=== PATIENT | male | born 1960 | race Two or more races ===

== ENCOUNTER 2017-08-31 09:35 | Inpatient (IN) | payer OTHER ==
[2017-08-31 10:10] VITALS: BMI 29.2
--- NOTE | 2017-08-31 10:58 | HP ---
CIWA Score - CIWA Score Nausea/Vomitin Muscle Tremors: 3 Anxiety: 3 Agitation: 4-Moderately Restless Paroxysmal Sweats: 3 Orientation: 0-Oriented Tacttile Disturbances: 0-None Auditory Disturbances: 0-None Visual Disturbances: 0-None Headache: 0-None Present CIWA-Ar Total Score: 16 Admission ROS S - HPI Chief Complaint: "I am here to detox from drugs and alcohol" Allergies/Adverse Reactions: Allergies Allergy/AdvReac Type Severity Reaction Status Date / Time No Known Allergies Allergy Verified 08/31/17 10:30 History of Present Illness: 57 y/o man with a long history of alcohol and marijuana addiction presents here today for detox from alcohol. States he was clean for 23 years but started drinking again last year, this time more than before. This is the first time pt will be in detox since his relapse. Hx of Bp, repair of R meniscus. Pt states abuses adderall, lorazepam and flurazapam prescribed by his psychiatrist for unknown dx. denies current SI/HI Exam Limitations: No Limitations - Ebola screening Have you traveled outside of the country in the last 21 days: No (N) Have you had contact with anyone from an Ebola affected area: No Have you been sick,other than usual withdrawal symptoms: No Do you have a fever: No - Review of Systems Constitutional: No Symptoms Reported EENT: reports: Nose Congestion Respiratory: reports: Shortness of Breath (on ambulation) Cardiac: reports: No Symptoms Reported GI: reports: Other (loose stools always after eating) : reports: No Symptoms Reported Musculoskeletal: reports: Joint Pain (L knee) Integumentary: reports: No Symptoms Reported Neuro: reports: Tingling (at fingertips) Endocrine: reports: Excessive Sweating Hematology: reports: No Symptoms Reported Psychiatric: reports: No Sypmtoms Reported, Judgement Intact, Orientated x3, Agitated Other Systems: Reviewed and Negative Patient History - Patient Medical History Hx Anemia: No Hx Asthma: No Hx Chronic Obstructive Pulmonary Disease (COPD): No Hx Cancer: No Hx Cardiac Disorders: No Hx Congestive Heart Failure: No Hx Hypertension: Yes (Amlodipine 5mg) Hx Hypercholesterolemia: No Hx Pacemaker: No HX Cerebrovascular Accident: No Hx Seizures: No Hx Diabetes: No Hx Gastrointestinal Disorders: No Hx Liver Disease: No Hx Genitourinary Disorders: No Hx Sexually Transmitted Disorders: No Hx Renal Disease (ESRD): No Hx Thyroid Disease: No Hx Human Immunodeficiency Virus (HIV): No Hx Hepatitis C: No Hx Depression: Yes Hx Suicide Attempt: No Hx Bipolar Disorder: No Hx Schizophrenia: No - Patient Surgical History Past Surgical History: Yes Hx Neurologic Surgery: No Hx Cataract Extraction: No Hx Cardiac Surgery: No Hx Lung Surgery: No Hx Breast Surgery: No Hx Breast Biopsy: No Hx Abdominal Surgery: No Hx Appendectomy: No Hx Cholecystectomy: No Hx Genitourinary Surgery: No Hx Section: No Hx Orthopedic Surgery: Yes (RT KNEE meniscus repair- 2006) Hx Hysterectomy: No Other Surgical History: EYE SX- 15 YRS AGO Anesthesia Reaction: No - PPD History Previous Implant?: Yes Documented Results: Negative w/o proof Implanted On Prior [facility] Admission?: No PPD to be Administered?: Yes - Reproductive History Patient is a Female of Child Bearing Age (11 -55 yrs old): No - Smoking Cessation Smoking history: Former smoker Have you smoked in the past 12 months: No Aproximately how many cigarettes per day: 0 If you are a former smoker, when did you quit?: 23 YEARS Hx Chewing Tobacco Use: No Initiated information on smoking cessation: Yes 'Breaking Loose' booklet given: 08/31/17 - Substance & Tx. History Hx Alcohol Use: Yes Hx Substance Use: Yes Substance Use Type: Alcohol, Tranquilizers - Substances Abused Alcohol Route: Oral Frequency: Daily Amount used: LIQUOR - Vodka - 4 PINTS Age of first use: 8 Date of Last Use: 08/30/17 Marijuana/Hashish Route: Smoking Frequency: Daily Amount used: 4 BLUNTS Age of first use: 9 Date of Last Use: 08/30/17 Benzodiazepine (Klonopin) Route: Oral Frequency: Daily Amount used: 30mg flurazapam, 1mg lorazepam 2x daily Age of first use: 47 Date of Last Use: 08/30/17 Family Disease History - Family Disease History Family Disease History: Other: Grandparent ( of liver cirrhosis), Father ( of liver cirrhosis), Mother (alzheimer, dementia), Brother (Alcoholic, IVDA ), Son (Alcoholic) Admission Physical Exam [facility] - Vital Signs Vital Signs: Vital Signs - 24 hr 08/31/17 10:08 Temperature 97.0 F L Pulse Rate 113 H Respiratory 22 Rate Blood Pressure 155/109 - Physical General Appearance: Yes: Mild Distress, Moderate Distress HEENTM: Yes: Within Normal Limits Respiratory: Yes: Chest Non-Tender, Lungs Clear Neck: Yes: Within Normal Limits Breast: Yes: Breast Exam Deferred Cardiology: Yes: Within Normal Limits, Tachycardia Abdominal: Yes: Non Tender, Distended Back: Yes: Within Normal Limits Musculoskeletal: Yes: Joint Stiffness (legs) Extremities: Yes: Within Normal Limits Neurological: Yes: Within Normal Limits, Fully Oriented, Alert, Normal Response Integumentary: Yes: Within Normal Limits Lymphatic: Yes: Within Normal Limits - Diagnostic (1) Alcohol dependence with uncomplicated withdrawal Current Visit: Yes Status: Acute (2) Marijuana dependence Current Visit: Yes Status: Chronic (3) Sedative hypnotic or anxiolytic dependence Current Visit: Yes Status: Chronic (4) HTN (hypertension) Current Visit: Yes Status: Chronic Cleared for Admission [facility] - Detox or Rehab [facility] Level of Care: Medically Managed Detox Regimen/Protocol: Librium S Breath Alcohol Content Breath Alcohol Content: 0 Urine Drug Screen - Results Drug Screen Negative: No Urine Drug Screen Results: THC-Marijuana, BZO-Benzodiazepines
[2017-08-31] MEDS ORDERED: P-EPHED 60MG/TRIPROLIDI 2.5MG TABLET PO PRN (11:41)
[2017-08-31] MEDS ORDERED: ACETAMINOPHEN 325 MG TABLET (FP) PO PRN (11:41)
[2017-08-31] MEDS ORDERED: MAGNESIUM HYDROX 2400MG/30ML ORAL SUSPENSION 30 ML CUP PO PRN (11:41)
[2017-08-31] MEDS ORDERED: LOPERAMIDE HCL 2 MG CAPSULE PO PRN (11:41)
[2017-08-31] MEDS ORDERED: MAGNESIUM CITRATE 300 ML BOTTLE PO PRN (11:41)
[2017-08-31] MEDS ORDERED: MAG HYDROX/AL HYDROX/SIMETH 30 ML UNIT-DOSE CUP PO PRN (11:41)
[2017-08-31] MEDS ORDERED: IBUPROFEN 400 MG TABLET (FP) PO PRN (11:41)
[2017-08-31] MEDS ORDERED: MENTHOL/PHENOL 1 EACH UD MM PRN (11:41)
[2017-08-31] MEDS ORDERED: guaiFENesin/D-METHORPHAN HB 10 ML UNIT-DOSE CUPS PO PRN (11:41)
--- NOTE | 2017-08-31 11:54 | PN ---
S Progress Note Note: Pt's Bp is elevated at this time, states he was given BP med earlier at the hospital today. Denies headache, chest pain/discomfort, blurry vision. Will repeat BP and treat as needed
[2017-08-31] MEDS: chlordiazePOXIDE HCL 25 MG CAPSULE PO SCH ×3 (12:35→22:26)
[2017-08-31] MEDS: METOPROLOL TARTRATE 50 MG TABLET (FP) PO SCH ×2 (12:36→22:26)
[2017-08-31 17:10] LABS: URINE APPEARANCE CLEAR; URINE BILIRUBIN NEGATIVE (<2.0 mg/dL); URINE BLOOD NEGATIVE (NEGATIVE); URINE COLOR YELLOW; URINE GLUCOSE (UA) NEGATIVE (NEGATIVE); URINE KETONE NEGATIVE (NEGATIVE); URINE LEUK ESTERASE NEGATIVE (NEGATIVE); URINE NITRITE NEGATIVE (NEGATIVE); URINE PROTEIN NEGATIVE (NEGATIVE)
[2017-08-31] MEDS: MELATONIN 5 MG TABLETS PO SCH (22:26)
[2017-08-31] MEDS: THIAMINE HCL 100 MG TABLET (FP) PO SCH (22:26)
[2017-09-01] MEDS: hydrOXYzine PAMOATE 50 MG CAPSULE (FP) PO PRN (01:37)
[2017-09-01] MEDS: chlordiazePOXIDE HCL 25 MG CAPSULE PO SCH ×4 (05:24→22:28)
--- NOTE | 2017-09-01 09:09 | EKG ---
Test Reason : Blood Pressure : / mmHG Vent. Rate : 107 BPM Atrial Rate : 107 BPM P-R Int : 146 ms QRS Dur : 088 ms QT Int : 338 ms P-R-T Axes : 083 026 048 degrees QTc Int : 451 ms SINUS TACHYCARDIA NORMAL ECG NO PREVIOUS ECGS AVAILABLE Confirmed by WENDY NICHOLS MD ([id number]) on 09/01/2017 9:08:40 AM Referred By: Confirmed By:WENDY NICHOLS MD
[2017-09-01] MEDS: METOPROLOL TARTRATE 50 MG TABLET (FP) PO SCH ×2 (10:08→22:28)
[2017-09-01] MEDS: PRENATAL VITAMINS W/ FOLIC ACID TABLET (FP) PO SCH (10:08)
[2017-09-01 10:09] LABS: HEMATOCRIT 39.9 % (35.4-49); MCHC 32.7 g/dl (32.0-35.9); MEAN CELL VOLUME 76.6 fl (80-96); MEAN PLT VOLUME 8.9 fl (7.5-11.1); PLATELET COUNT 271 K/MM3 (134-434); RBC 5.21 M/mm3 (4.00-5.60); RDW 17.4 % (11.9-15.9); WHITE BLOOD COUNT 6.9 K/mm3 (4.0-10.0)
[2017-09-01] MEDS: amLODIPine BESYLATE 5 MG TABLET (FP) PO SCH (10:10)
--- NOTE | 2017-09-01 10:27 | CONSULT ---
[facility] Psychiatric Consult - Data Date of interview: 09/01/17 Admission source: [facility] Identifying data: This is 57 years old AA male , , but , fatyhjer of two, living with roomate, selfemployed, on PA, eith no psychiatric hospitalizations history,. Pt states abuses adderall, lorazepam and flurazapam prescribed by his psychiatrist for unknown dx. Substance Abuse History: Smoking history: Former smoker. Have you smoked in the past 12 months: No. Aproximately how many cigarettes per day: 0. If you are a former smoker, when did you quit?: 23 YEARS. Hx Chewing Tobacco Use: No. Initiated information on smoking cessation: Yes. 'Breaking Loose' booklet given: 08/31/17. - Substance & Tx. History. Hx Alcohol Use: Yes. Hx Substance Use: Yes. Substance Use Type: Alcohol, Tranquilizers. - Substances Abused. Alcohol. Route: Oral. Frequency: Daily. Amount used: LIQUOR - Vodka - 4 PINTS. Age of first use: 8. Date of Last Use: 08/30/17. Marijuana/Hashish. Route: Smoking. Frequency: Daily. Amount used: 4 BLUNTS. Age of first use: 9. Date of Last Use: 08/30/17. Benzodiazepine (Klonopin) . Route: Oral. Frequency: Daily. Amount used: 30mg flurazapam, 1mg lorazepam 2x daily. Age of first use: 47. Date of Last Use: 08/30/17 Medical History: HTN Psychiatric History: Patien onel insomnia, anxiety, asking for sleeeping medications, Physical/Sexual Abuse/Trauma History: Denies, reports history of S/P surgery mark replace left meniscus. Additional Comment: Seroquel 150mg pop qhs. Observation Mental Status Exam - Mental Status Exam Alert and Oriented to: Place, Person Cognitive Function: Fair Patient Appearance: Well Groomed Mood: Apprehensive Affect: Mood Congruent Patient Behavior: Cooperative Speech Pattern: Appropriate Voice Loudness: Normal Thought Process: Goal Oriented Thought Disorder: Being Controlled Hallucinations: Denies Suicidal Ideation: Denies Homicidal Ideation: Denies Insight/Judgement: Fair Sleep: Difficulty falling asleep Appetite: Weight gain Muscle strength/Tone: Mild Hypotonicity Gait/Station: Shuffling Additional Comments: Seroquel 150mg pop qhs. Observation Psychiatric Findings - Problem List ([facility] 1, 2,3) (1) Drug-induced mood disorder Current Visit: Yes Status: Acute (2) Alcohol dependence with uncomplicated withdrawal Current Visit: Yes Status: Acute (3) Marijuana dependence Current Visit: Yes Status: Chronic (4) Sedative hypnotic or anxiolytic dependence Current Visit: Yes Status: Chronic - Initial Treatment Plan Initial Treatment Plan: Seroquel 150mg pop qhs. Observation
[2017-09-01 10:34] LABS: ALBUMIN 3.9 g/dl (3.4-5.0); ANION GAP 11 (8-16); BLOOD UREA NITROGEN 16 mg/dL (7-18); CALCIUM 9.1 mg/dL (8.5-10.1); CHLORIDE 102 mmol/L (98-107); CO2 27 mmol/L (21-32); GLUCOSE,RANDOM 116 mg/dL (74-106); POTASSIUM 3.9 mmol/L (3.5-5.1); SGOT/AST 40 U/L (15-37); SGPT/ALT 45 U/L (12-78); SODIUM 140 mmol/L (136-145)
[2017-09-01 10:36] LABS: ALK PHOS 89 U/L (45-117); BILIRUBIN,TOTAL 0.9 mg/dL (0.2-1.0); TOT PROT 7.6 g/dl (6.4-8.2)
--- NOTE | 2017-09-01 11:32 | PN ---
S CIWA - CIWA Score Nausea/Vomitin Muscle Tremors: 3 Anxiety: 3 Agitation: 3 Paroxysmal Sweats: 2 Orientation: 0-Oriented Tacttile Disturbances: 1-Very Mild Itch/Numbness Auditory Disturbances: 1-Very Mild Visual Disturbances: 0-None Headache: 2-Mild CIWA-Ar Total Score: 18 S Progress Note (SOAP) Subjective: ALERT,IRRITABLE,ANXIOUS,INTERRUPTED SLEEP,TREMOR Objective: 09/01/17 11:30 Vital Signs Temperature 97.9 F 09/01/17 09:48 Pulse Rate 90 09/01/17 09:48 Respiratory Rate 20 09/01/17 09:48 Blood Pressure 136/78 09/01/17 09:48 O2 Sat by Pulse Oximetry (%) EKG SINUS TACHYCARDIA 107/MIN 09/01/17 11:31 Laboratory Last Values WBC 6.9 K/mm3 (4.0-10.0) 09/01/17 07:00 RBC 5.21 M/mm3 (4.00-5.60) 09/01/17 07:00 Hgb 13.0 GM/dL (11.7-16.9) 09/01/17 07:00 Hct 39.9 % (35.4-49) 09/01/17 07:00 MCV 76.6 fl (80-96) L 09/01/17 07:00 MCH 25.0 pg (25.7-33.7) L 09/01/17 07:00 MCHC 32.7 g/dl (32.0-35.9) 09/01/17 07:00 RDW 17.4 % (11.9-15.9) H 09/01/17 07:00 Plt Count 271 K/MM3 (134-434) 09/01/17 07:00 MPV 8.9 fl (7.5-11.1) 09/01/17 07:00 Sodium 140 mmol/L (136-145) 09/01/17 07:00 Potassium 3.9 mmol/L (3.5-5.1) 09/01/17 07:00 Chloride 102 mmol/L (98-107) 09/01/17 07:00 Carbon Dioxide 27 mmol/L (21-32) 09/01/17 07:00 Anion Gap 11 (8-16) 09/01/17 07:00 BUN 16 mg/dL (7-18) 09/01/17 07:00 Creatinine 1.0 mg/dL (0.7-1.3) 09/01/17 07:00 Creat Clearance w eGFR > 60 (>60) 09/01/17 07:00 Random Glucose 116 mg/dL (74-106) H 09/01/17 07:00 Calcium 9.1 mg/dL (8.5-10.1) 09/01/17 07:00 Total Bilirubin 0.9 mg/dL (0.2-1.0) 09/01/17 07:00 AST 40 U/L (15-37) H 09/01/17 07:00 ALT 45 U/L (12-78) 09/01/17 07:00 Alkaline Phosphatase 89 U/L (45-117) 09/01/17 07:00 Total Protein 7.6 g/dl (6.4-8.2) 09/01/17 07:00 Albumin 3.9 g/dl (3.4-5.0) 09/01/17 07:00 Urine Color Yellow 08/31/17 11:50 Urine Appearance Clear 08/31/17 11:50 Urine pH 6.0 (5.0-8.0) 08/31/17 11:50 Ur Specific [place] 1.016 (1.001-1.035) 08/31/17 11:50 Urine Protein Negative (NEGATIVE) 08/31/17 11:50 Urine Glucose (UA) Negative (NEGATIVE) 08/31/17 11:50 Urine Ketones Negative (NEGATIVE) 08/31/17 11:50 Urine Blood Negative (NEGATIVE) 08/31/17 11:50 Urine Nitrite Negative (NEGATIVE) 08/31/17 11:50 Urine Bilirubin Negative (<2.0 mg/dL) 08/31/17 11:50 Urine Urobilinogen 2.0 mg/dL (0.2-1.0) 08/31/17 11:50 Ur Leukocyte Esterase Negative (NEGATIVE) 08/31/17 11:50 Assessment: 09/01/17 11:31 WITHDRAWAL SYMPTOM Plan: CONTINUE DETOX,FASTING GLUCOSE IN AM INITIAL GLUCOSE IS 116
[2017-09-01] MEDS ORDERED: QUEtiapine FUMARATE 100 MG TABLET (FP) PO SCH (22:00)
[2017-09-01] MEDS: THIAMINE HCL 100 MG TABLET (FP) PO SCH (22:28)
[2017-09-01] MEDS: MELATONIN 5 MG TABLETS PO SCH (22:29)
[2017-09-02] MEDS: hydrOXYzine PAMOATE 50 MG CAPSULE (FP) PO PRN (01:48)
[2017-09-02] MEDS: chlordiazePOXIDE HCL 25 MG CAPSULE PO PRN (02:28)
[2017-09-02] MEDS: chlordiazePOXIDE HCL 25 MG CAPSULE PO SCH (05:22)
[2017-09-02] MEDS: chlordiazePOXIDE 5 MG CAPSULE PO SCH ×3 (10:45→22:20)
[2017-09-02] MEDS: amLODIPine BESYLATE 5 MG TABLET (FP) PO SCH (10:45)
[2017-09-02] MEDS: METOPROLOL TARTRATE 50 MG TABLET (FP) PO SCH ×2 (10:45→22:20)
[2017-09-02] MEDS: PRENATAL VITAMINS W/ FOLIC ACID TABLET (FP) PO SCH (10:45)
--- NOTE | 2017-09-02 11:39 | PN ---
S CIWA - CIWA Score Nausea/Vomitin Muscle Tremors: 3 Anxiety: 3 Agitation: 3 Paroxysmal Sweats: 1-Minimal Palms Moist Orientation: 0-Oriented Tacttile Disturbances: 1-Very Mild Itch/Numbness Auditory Disturbances: 1-Very Mild Visual Disturbances: 0-None Headache: 2-Mild CIWA-Ar Total Score: 17 BHS Progress Note (SOAP) Subjective: ALERT,IRRITABLE,ANXIOUS,INTERRUPTED SLEEP,TREMOR,PAIN IN THE BODY Objective: 09/02/17 11:38 Vital Signs Temperature 97.7 F 09/02/17 06:19 Pulse Rate 88 09/02/17 06:19 Respiratory Rate 18 09/02/17 06:19 Blood Pressure 136/93 09/02/17 06:19 O2 Sat by Pulse Oximetry (%) Laboratory Results - last 24 hr 09/01/17 09/02/17 07:00 07:00 Fasting Glucose 90 RPR Titer Nonreactive Assessment: 09/02/17 11:38 WITHDRAWAL SYMPTOM Plan: CONTINUE DETOX
[2017-09-02] MEDS ORDERED: QUEtiapine FUMARATE 100 MG TABLET (FP) PO SCH (17:26)
--- NOTE | 2017-09-02 17:26 | PN ---
[facility] Progress Note Note: Psychiatric nurse practitioner note: RN reports patient was upset after seroquel 100mg qhs was ordered. As per patient, psychiatrist stated he would order seroquel 150mg qhs. Chart reviewed. Dr. Coreas's note read and appreciated. Will order seroquel 150mg qhs.
[2017-09-02] MEDS ORDERED: QUEtiapine FUMARATE 50 MG TABLET PO SCH (22:00)
[2017-09-02] MEDS: THIAMINE HCL 100 MG TABLET (FP) PO SCH (22:20)
[2017-09-02] MEDS: MELATONIN 5 MG TABLETS PO SCH (22:20)
[2017-09-03] MEDS: chlordiazePOXIDE HCL 25 MG CAPSULE PO PRN (03:26)
[2017-09-03] MEDS: chlordiazePOXIDE 5 MG CAPSULE PO SCH (05:59)
--- NOTE | 2017-09-03 08:18 | PN ---
Psychiatric Progress Note Vital Signs: Vital Signs Period Temp Pulse Resp BP Sys/[place] Pulse Ox Last 24 Hr 96.1 F-98.1 F 85-95 18-20 135-151/81-95 Date of Session: 09/03/17 Chief Complaint:: Seroquel order HPI: Patient aproached in a lobby asking to increase his Seroquel to 200mg po qhs due to insomnia Current Medications: Active Medications Generic Name Dose Route Start Last Admin Trade Name Freq PRN Reason Stop Dose Admin Acetaminophen 650 mg 08/31/17 11:41 Tylenol - PO Q4H PRN FEVER Al Hydroxide/Mg Hydroxide 30 ml 08/31/17 11:41 Mylanta Oral Suspension - PO Q6H PRN DYSPEPSIA Amlodipine Besylate 5 mg 09/01/17 10:00 09/02/17 10:45 Norvasc - PO 5 mg DAILY INGRID Administration Chlordiazepoxide HCl 25 mg 08/31/17 11:41 09/03/17 03:26 Librium - PO 09/03/17 11:40 25 mg Q4H PRN Administration WITHDRAWAL(CONT SUBST) Chlordiazepoxide HCl 10 mg 09/03/17 11:00 Librium - PO 09/04/17 05:01 [id number] INGRID Eucalyptus/Menthol/Phenol/Sorbitol 1 each 08/31/17 11:41 Cepastat Lozenge - MM Q4H PRN SORE THROAT Guaifenesin 10 ml 08/31/17 11:41 Robitussin Dm - PO Q6H PRN COUGH Hydroxyzine Pamoate 50 mg 08/31/17 11:41 09/02/17 01:48 Vistaril - PO 50 mg Q4H PRN Administration AGITATION Ibuprofen 400 mg 08/31/17 11:41 Motrin - PO Q6H PRN PAIN LEVEL 4-6 Loperamide HCl 4 mg 08/31/17 11:41 Imodium - PO Q6H PRN DIARRHEA Magnesium Citrate 300 ml 08/31/17 11:41 Citroma - PO Q48H PRN CONSTIPATION Magnesium Hydroxide 30 ml 08/31/17 11:41 Milk Of Magnesia - PO DAILY PRN CONSTIPATION Melatonin 5 mg 08/31/17 22:00 09/02/17 22:20 Melatonin PO 5 mg HS INGRID Administration Metoprolol Tartrate 50 mg 08/31/17 12:30 09/02/17 22:20 Lopressor - PO 50 mg BID INGRID Administration Multivit/Folic Acid/Iron 1 tab 09/01/17 10:00 09/02/17 10:45 Vitamins ([facility]) - PO 1 tab DAILY INGRID Administration Pseudoephedrine/Triprolidine 1 combo 08/31/17 11:41 Actifed - PO TID PRN NASAL CONGESTION Quetiapine Fumarate 200 mg 09/03/17 08:10 Seroquel - PO HS INGRID Thiamine HCl 100 mg 08/31/17 22:00 09/02/17 22:20 Vitamin B1 - PO 100 mg HS INGRID Administration Medication(s) Change(s): Seroquel to 200mg po qhs Mental Status Exam - Mental Status Exam Alert and Oriented to: Place, Person Cognitive Function: Fair Patient Appearance: Unkempt Mood: Anxious, Irritable Affect: Mood Congruent Patient Behavior: Cooperative Speech Pattern: Appropriate Voice Loudness: Normal Thought Process: Goal Oriented Thought Disorder: Being Controlled Hallucinations: Denies Suicidal Ideation: Denies Homicidal Ideation: Denies Insight/Judgement: Fair Sleep: Difficulty falling asleep Appetite: Weight gain Muscle strength/Tone: Normal Gait/Station: Normal Additional Comments: Seroquel to 200mg po qhs Psychiatric Treatment Plan - Problem List (1) Drug-induced mood disorder Current Visit: Yes (2) Alcohol dependence with uncomplicated withdrawal Current Visit: Yes (3) Marijuana dependence Current Visit: Yes (4) Sedative hypnotic or anxiolytic dependence Current Visit: Yes Initial treatment plan: Seroquel to 200mg po qhs
[2017-09-03] MEDS: PRENATAL VITAMINS W/ FOLIC ACID TABLET (FP) PO SCH (10:14)
[2017-09-03] MEDS: amLODIPine BESYLATE 5 MG TABLET (FP) PO SCH (10:14)
[2017-09-03] MEDS: METOPROLOL TARTRATE 50 MG TABLET (FP) PO SCH ×2 (10:14→22:10)
[2017-09-03] MEDS: chlordiazePOXIDE HCL 10 MG CAPSULE PO SCH ×3 (10:16→22:09)
--- NOTE | 2017-09-03 10:47 | PN ---
S Progress Note (SOAP) Subjective: ALERT,IRRITABLE,ANXIOUS,INTERRUPTED SLEEP Objective: 09/03/17 10:46 Vital Signs Temperature 99.9 F H 09/03/17 10:00 Pulse Rate 99 H 09/03/17 10:00 Respiratory Rate 20 09/03/17 10:00 Blood Pressure 138/85 09/03/17 10:00 O2 Sat by Pulse Oximetry (%) Assessment: 09/03/17 10:46 WITHDRAWAL SYMPTOM Plan: CONTINUE DETOX,DISCHARGE IN AM
[2017-09-03] MEDS ORDERED: QUEtiapine FUMARATE 200 MG TABLET PO SCH (22:00)
[2017-09-03] MEDS: MELATONIN 5 MG TABLETS PO SCH (22:09)
[2017-09-03] MEDS: THIAMINE HCL 100 MG TABLET (FP) PO SCH (22:10)
[2017-09-04] MEDS: hydrOXYzine PAMOATE 50 MG CAPSULE (FP) PO PRN (02:58)
[2017-09-04] MEDS: chlordiazePOXIDE HCL 10 MG CAPSULE PO SCH (05:36)
[2017-09-04 06:17] VITALS: BP 123/74; PULSE 101; TEMP 95.9
--- NOTE | 2017-09-04 08:30 | PN ---
S Progress Note (SOAP) Subjective: ALERT,NO COMPLAINT Objective: 09/04/17 08:29 Vital Signs Temperature 95.9 F L 09/04/17 06:00 Pulse Rate 101 H 09/04/17 06:00 Respiratory Rate 18 09/04/17 06:00 Blood Pressure 123/74 09/04/17 06:00 O2 Sat by Pulse Oximetry (%) Assessment: 09/04/17 08:29 DETOX COMPLETED,NO WITHDRAWAL SYMPTOM Plan: DISCHARGE TODAY,FOLLOW UP WITH AFTER CARE PROGRAM ARRANGEMENT
--- NOTE | 2017-09-04 08:36 | DS ---
[facility] Detox Discharge Summary Admission Date: 08/31/17 Discharge Date: 09/04/17 - History Present History: Alcohol Dependence, Cocaine Dependence, Sedative Dependence Additional Comments: FOLLOW UP WITH AFTER CARE PROGRAM ARRANGEMENT Pertinent Past History: HYPERTENSION - Physical Exam Results Vital Signs: Vital Signs Temperature 95.9 F L 09/04/17 06:00 Pulse Rate 101 H 09/04/17 06:00 Respiratory Rate 18 09/04/17 06:00 Blood Pressure 123/74 09/04/17 06:00 O2 Sat by Pulse Oximetry (%) Pertinent Admission Physical Exam Findings: WITHDRAWAL SIGNS AND SYMPTOM - Treatment Hospital Course: Detox Protocol Followed, Detoxed Safely, Responded well, Discharged Condition Good, Rehab Referral Accepted Patient has Accepted a Rehab Referral to: [facility] - Medication Discharge Medications: Ambulatory Orders Flurazepam HCl [[place] -] 30 mg PO HS 08/31/17 Quetiapine Fumarate [Seroquel] 100 mg PO HS #30 tablet 09/01/17 Amlodipine Besylate [Norvasc -] 5 mg PO DAILY #30 tablet 09/03/17 Quetiapine Fumarate [Seroquel -] 200 mg PO HS #30 tablet 09/03/17 - Diagnosis (1) Alcohol dependence with uncomplicated withdrawal Current Visit: Yes Status: Acute (2) Drug-induced mood disorder Current Visit: Yes Status: Acute (3) HTN (hypertension) Current Visit: Yes Status: Chronic (4) Marijuana dependence Current Visit: Yes Status: Chronic (5) Sedative hypnotic or anxiolytic dependence Current Visit: Yes Status: Chronic - AMA Did Patient Leave Against Medical Advice: No
--- NOTE | 2017-09-04 08:40 | PN ---
[facility] Progress Note Note: PATIENT STATED HE COULD NOT GO TO REHAB NOW HAS TO GO TO THE COURT FIRST,
== END 2017-09-04 09:00 | disposition home or self-care (01) | DRG 775 ==
LOC: YASAS 09:35 → Y6N 11:30
PROVIDERS: ADMIT Internal Medicine; ATTEND Internal Medicine
PROC: HZ2ZZZZ Detoxification Services for Substance Abuse Treatment (ICD-10-PCS; principal; 2017-08-31)
DX: F13.230 Sedative, hypnotic or anxiolytic dependence with withdrawal, uncomplicated (principal); F10.230 Alcohol dependence with withdrawal, uncomplicated; F12.20 Cannabis dependence, uncomplicated; F19.24 Other psychoactive substance dependence with psychoactive substance-induced mood disorder; F41.9 Anxiety disorder, unspecified; G47.00 Insomnia, unspecified; I10 Essential (primary) hypertension
CPT/HCPCS: 36415; 80053; 81003; 82947; 85027; 86593; 93005; 93010